=== PATIENT | male | born 2000 | race Caucasian/White ===

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

== ENCOUNTER 2022-11-30 08:35 | Observation (INO) | payer BC, SELFPAY ==
[2022-11-30 08:36] VITALS: BP 113/93; PULSE 111; RESP 16; TEMP 36.4; O2SAT 100; BMI 20.3
--- NOTE | 2022-11-30 08:45 | EX.ED.DYSGE1 ---
HPI History of Present Illness Chief Complaint: Nausea/Vomiting Detail of Chief Complaint: Vomiting and diarrhea Informant: patient Narrative Narrative: Patient presents the emergency department complaint of vomiting and diarrhea that started around 4 AM. Patient has vomited countless times and has had about 4 watery stools. He denies any blood in his stool or vomit. He describes intermittent crampy abdominal pain in the upper abdomen. Denies alcohol use. Patient does smoke marijuana. Denies sick contacts. He has had no fever. Denies urinary symptoms. He denied history of cyclic vomiting syndrome. [facility] Medical History ADD (attention deficit disorder) Comminuted fracture Depression Foreign body in left ear Fracture of radial shaft with ulna, closed Home Medications dextroamphetamine-amphetamine 20 mg tablet (Adderall) 20 mg PO DAILY 11/01/19 [History Last Taken Unknown] amoxicillin 875 mg-potassium clavulanate 125 mg tablet 1 tab PO BID #20 tabs 06/17/22 [Rx Last Taken Unknown] Allergy/AdvReac Type Severity Reaction Status Date / Time No Known Allergies Allergy Verified 11/30/22 08:37 Family History Other Alzheimer disease Depression Heart disease Surgical History History of tonsillectomy plastic surgery of the nasal and maxillary sinus Social History Smoking Status: Never smoker ROS ROS ED Review of Systems ROS Unobtainable: other Constitutional Constitutional ED: Reports lethargy; Denies chills, fever(s), sweats or weight loss Eyes Eyes: Denies blurry vision, change in vision or diplopia ENT ENT ED: Denies rhinorrhea or sore throat Cardiovascular Cardiovascular: Denies chest pain, orthopnea or racing heartbeat Respiratory/Chest Respiratory/Chest: Denies cough, dyspnea, dyspnea on exertion, orthopnea or sputum Gastrointestinal Gastrointestinal: Reports abdominal pain, diarrhea, nausea and vomiting Genitourinary Genitourinary ED: Denies dysuria, hematuria or urinary frequency Musculoskeletal Musculoskeletal: Denies arthralgias, back pain, myalgias or neck pain Integumentary Denies abscess, Abrasions or rash Neurologic Neurologic: Denies headache(s) or weakness Psychiatric Psychiatric: Denies anxiety, depression or suicidal thoughts Endocrine Endocrinology: Denies polydipsia, polyphagia or polyuria Hematologic/Lymphatic Hematologic/Lymphatic: Denies easy bleeding, easy bruising or lymphadenopathy Allergic/Immunologic Allergic/Immunologic ED: Denies mouth swelling, tongue swelling or urticaria EXAM Physical Exam Const Vital Signs: 11/30/22 08:36 11/30/22 12:03 Temperature 97.6 F L Temperature Source Temporal Pulse Rate 111 H 59 L Respiratory Rate 16 16 Blood Pressure 113/93 H 125/79 H Blood Pressure Mean 99 94 Pulse Ox 100 100 Oxygen Delivery Method Room Air Room Air Positive well nourished and well developed General Appearance ED: well developed and NAD HEENT Reports TM's clear and moist mucous membranes normocephalic and atraumatic; Negative for trauma or tenderness Tympanic Membrane ED: Yes TM's clear Eyes PERRL and EOMs intact bilaterally General Eye ED: Negative for pale conjunctiva or scleral icterus Neck no lymphadenopathy, supple and no JVD General: Negative for tenderness Chest Wall inspection of chest normal and palpation of chest normal Chest: Negative for tenderness Resp normal respiratory effort and clear to auscultation bilaterally Effort and Inspection: Negative for respiratory distress or pain with movement Auscultation: Negative for rhonchi, wheezes or diminished lung sounds Cardio regular rate, regular rhythm, S1 normal heart sound, S2 normal heart sound and no murmurs Peripheral Pulses: pulses 2+ throughout GI normal to inspection, nondistended, normoactive bowel sounds, soft to palpation, non-tender, non-distended and no masses Back/Spine no CVA tenderness and no thoracic nor lumbar tenderness Extremity normal to inspection General Extremety ED: Negative for edema General Extremity: Negative for edema Neuro oriented x3, CN's II-XII intact bilaterally, no sensory deficits noted and gait normal Sensorium / Orientation: awake, alert, oriented to person, oriented to place and oriented to time Motor Exam: strength 5/5 throughout and strength abnormal Psych mental status grossly normal Skin no rashes or lesions noted and no wounds MDM MDM MDM Narrative Medical decision making narrative: Patient with abdominal pain and vomiting and diarrhea. In the differential was viral gastroenteritis versus other acute intra-abdominal process. IV line established. Initially patient medicated with Zofran and Bentyl. He continued to vomit. He continued complaint of pain. Patient was medicated with morphine and Reglan and Benadryl. Despite Reglan continues to feel quite nauseated and at times having dry heaves. CBC with differential showed a white count of 12.9 with a hemoglobin of 15 and a hematocrit of 44. Chemistries unremarkable. LFTs and lipase were normal. Urinalysis was normal. I did obtain a CT scan of the abdomen pelvis without contrast which showed a possible ureteral stone in the distal ureter measuring 2.3 mm on the right with no associated hydro nephrosis. I had a long discussion with patient and his mother who is in the room with him. He is still not feeling well and continues to be nauseated and continues to complain of abdominal pain. This point we will discuss case with hospitalist to evaluate patient for admission for intractable nausea and vomiting. This time I suspect gastroenteritis. His abdominal pain is upper abdomen and really does not have much discomfort in the right or right lower quadrant. He does not have blood in his urine and therefore its unclear if the calcification seen on CT is a ureteral stone. Lab Data Labs: Laboratory Results - last 24 hr 11/30/22 11/30/22 11/30/22 08:57 08:57 12:00 WBC 12.9 H RBC 4.88 Hgb 15.1 Hct 43.8 MCV 89.8 MCH 30.9 MCHC 34.5 RDW Std Deviation 38.6 RDW Coeff of Marcy 11.9 Plt Count 342 MPV 9.1 Immature Gran % (Auto) 0.300 Neut % (Auto) 79.3 H Lymph % (Auto) 15.3 L [place] % (Auto) 3.8 Eos % (Auto) 0.7 Baso % (Auto) 0.6 Absolute Neuts (auto) 10.2 H Absolute Lymphs (auto) 1.98 Nucleated RBC % 0 Sodium 139 Potassium 3.5 Chloride 107 Carbon Dioxide 28.0 Anion Gap 4 L BUN 9 Creatinine 0.80 Estim Creat Clear Calc 140.57 Est GFR (MDRD) Af Amer 157 Est GFR (MDRD) Non-Af 129 BUN/Creatinine Ratio 11.2 Glucose 134 H Calcium 9.6 Total Bilirubin 0.60 AST 20 ALT 24 Alkaline Phosphatase 63 Total Protein 8.1 Albumin 4.7 Globulin 3.4 Albumin/Globulin Ratio 1.4 Lipase 279 Urine Color Yellow Urine Clarity Clear Urine pH 8.0 Ur Specific [place] 1.015 Urine Protein 30 H Urine Glucose (UA) Normal Urine Ketones 50 H Urine Occult Blood Negative Urine Nitrite Negative Urine Bilirubin Negative Urine Urobilinogen Normal Ur Leukocyte Esterase Negative Urine RBC 0 SEEN Urine WBC 0 SEEN Ur Squamous Epith Cells 0 SEEN Urine Bacteria 0 SEEN Urine Mucus 0 SEEN Radiography Diagnostic Testing: Clinical Impression(s) from Imaging Studies Abdomen/Pelvis CT 11/30/22 10:44 IMPRESSION: Possible 2.3 mm calculus within the right distal ureter with no associated hydroureteronephrosis. Electronically Signed: Daniella Lucero MD at 11:19 EDT , Discharge Plan Dx/Rx/DC Orders Clinical Impression: Intractable vomiting with nausea, Abdominal pain Disposition Disposition: Acute Care Hospital [facility]
[2022-11-30] MEDS: Ondansetron 4 MG/2 ML Vial IV (08:51)
[2022-11-30] MEDS: Dicyclomine 20 MG/2 ML Vial IM (08:51)
[2022-11-30] MEDS: 0.9% Normal Saline 1,000 ML 1000 ML IV (08:56)
[2022-11-30 09:03] LABS: Absolute Lymphocyte Count 1.98 X10^3/uL (0.83-4.51); Absolute Neutrophil Count 10.2 X10^3/uL (2.0-7.7); Basophil# 0.08 X10^3/uL; Basophil% 0.6 % (0-1); Eosinophil# 0.09 X10^3/uL; Eosinophils% 0.7 % (0-5); Hematocrit 43.8 % (40-54); Hemoglobin 15.1 g/dL (13.0-16.5); Lymphocyte # 1.98 X10^3/ul (0.83-4.51); Lymphocyte % 15.3 % (19-41); Mean Corp Hgb Conc 34.5 g/dL (32-36); Mean Corpuscular Hgb 30.9 pg (27.0-32.0); Mean Corpuscular Volume 89.8 fL (80-94); Mean Platelet Vol. 9.1 fl (6.2-12.0); Monocyte# 0.49 X10^3/uL; Monocyte% 3.8 % (0-10); NRBC Flagged by Analyzer 0 % (0-5); Neutrophil # 10.24 X10^3/uL (2.7-7.7); Neutrophil % 79.3 % (47-70); Platelet Count 342 K/mm3 (150-450); RBC Distribution Width CV 11.9 % (11.6-14.6); RBC Distribution Width SD 38.6 fl (35.1-43.9); Red Blood Count 4.88 M/mm3 (4.6-6.2); White Blood Count 12.9 K/mm3 (4.4-11.0)
[2022-11-30 09:32] LABS: BUN 9 mg/dL (7-18); EST Glomerular Filtration Rate 129 mL/min (>60); Estimated Creatinine Clearance 140.57 ml/min; Glucose 134 mg/dL (74-106)
[2022-11-30 09:33] LABS: ALB/GLOB Ratio 1.4 RATIO (0.9-2.4); AST(SGOT) 20 U/L (15-37); Alanine Aminotransfer ALT/SGPT 24 U/L (16-61); Albumin, Serum 4.7 g/dL (3.2-5.0); Alkaline Phosphatase 63 U/L (45-117); Anion Gap 4 (5-15); BUN/Creat Ratio 11.2 RATIO (10-20); Calcium,Total 9.6 mg/dL (8.5-10.1); Chloride 107 mmol/L (98-107); Est Glom Filt Rate - Afr Amer 157 mL/min (>60); Globulin 3.4 g/dL (2.2-4.2); Lipase 279 U/L (73-393); Potassium 3.5 mmol/L (3.5-5.1); Protein, Total 8.1 g/dL (6.4-8.2); Sodium Level 139 mmol/L (136-145)
[2022-11-30] MEDS: Morphine 4 MG/ML Syringe IV (10:16)
[2022-11-30] MEDS: Metoclopramide 10 MG/2 ML Vial IV (10:17)
[2022-11-30] MEDS: DiphenhydrAMINE 50 MG/ML Syringe 25 MG IV (10:19)
--- NOTE | 2022-11-30 10:44 | CT_ITS ---
INDICATION: abdominal pain EXAMINATION: CT ABDOMEN AND PELVIS WITHOUT CONTRAST - CT Abdomen And Pelvis W/O Contrast Injection TECHNIQUE: Helically acquired images were obtained of the abdomen and pelvis without oral or IV contrast. A radiation dose optimization technique was used for this scan. IV Contrast dosage and agent: None. Oral contrast: None. RADIATION DOSAGE (If Supplied By Facility): CTDIvol = ( 6.04 ) mGy, DLP = ( 303.53 ) mGycm COMPARISON: None. FINDINGS: LOWER CHEST: Lung bases are clear. No cardiomegaly or pericardial effusion. The lack of intravenous contrast limits evaluation of solid visceral organs. LIVER: Homogeneous. No focal mass. GALLBLADDER AND BILIARY TREE: No calcified gallstones. No gallbladder distension or wall edema. No intra- or extrahepatic biliary ductal dilation. PANCREAS: No focal cystic or solid mass. SPLEEN: Normal size without focal cystic or solid mass. ADRENAL GLANDS: No nodules. KIDNEYS AND URETERS: Normal renal size and position. No hydronephrosis. There is a 2.3 mm round calcification that may be within the distal right ureter. PERITONEUM: No ascites or free air. No other fluid collection. BOWEL: No evidence of acute appendicitis. No stomach or bowel distension. No focal inflammatory change. LYMPH NODES: No enlarged mesenteric or retroperitoneal lymph nodes. VESSELS: Aorta is non-dilated. URINARY BLADDER: Unremarkable. REPRODUCTIVE ORGANS: No pelvic masses. ABDOMINAL WALL: No discrete abdominal or pelvic wall hernia. BONES: No lytic or blastic abnormality. CT/Abdomen/Pelvis without Cont IMPRESSION: Possible 2.3 mm calculus within the right distal ureter with no associated hydroureteronephrosis. Electronically Signed: Daniella Lucero MD at 11:19 EDT ,
[2022-11-30] MEDS: Ketorolac 30 MG/ML Syringe IV (12:02)
[2022-11-30 12:03] VITALS: BP 125/79; PULSE 59; RESP 16; O2SAT 100
[2022-11-30 12:08] LABS: Bacteria 0 SEEN /hpf (None Seen); Mucous, Urine 0 SEEN /hpf (<or=2+); Red Blood Cells-Urine 0 SEEN /hpf (0-5); Squamous Epithelial Cells - UA 0 SEEN /hpf (0-5); White Blood Cells 0 SEEN /hpf (0-5)
[2022-11-30 12:17] LABS: Color, Urine Yellow (Yellow); Glucose, Dipstick Normal (Normal); Ketone-Dipstick 50 mg/dl (Negative); Leukocyte Esterase-Dipstick Negative /ul (Negative); Nitrite-Dipstick Negative (Negative); Occult Blood-Urine Negative /ul (Negative); Protein-Dipstick 30 mg/dl (Negative); Specific Gravity, Urine 1.015 (1.002-1.030); Urine Bilirubin Dipstick Negative (Negative); Urine Clarity Clear (Clear); Urine Urobilinogen Normal (Normal)
--- NOTE | 2022-11-30 13:01 | NURSING ---
DR JACOB SUERO
--- NOTE | 2022-11-30 13:13 | NURSING ---
MED SURG JACOB OBS INTRACTABLE NAUSEA, VOMITING, ABD PAIN
--- NOTE | 2022-11-30 13:21 | HP.PCM.HOS_ITS ---
HPI - General General Date of Admission: 11/30/22 Date of Service: 11/30/22 Chief Complaint: Persistent nausea and vomiting and diarrhea that started today multiple times. HPI Narrative TRINA CARVAJAL, is a 22 M came to ED accompanied with his mother for persistent diarrhea more than 10 times watery in consistency, liquid with no blood or mucus started about 4 AM today. Patient has abdominal cramps mainly in upper abdomen mainly epigastric region. Patient also had 4-5 times nausea and vomiting and not able to have oral intake because of vomiting. Patient is crawling up because of abdominal cramp and dehydrated. No hematemesis melena or hematochezia. Patient mother denied diagnosis of cyclic vomiting in the past. Patient had antibiotic for acute sinusitis, Augmentin in May 2022 but no need recent antibiotic intake. No fever or chills. No unusual food outside or water or hiking or other activity. Labs reviewed in ED. Social history: Her mother side he vapes but no cigarette smoking. No heavy or chronic alcohol use. No substance use. Family history: No history of colon cancer or malignant polyp or hereditary polyp syndrome [facility] Medical History ADD (attention deficit disorder) Comminuted fracture Depression Foreign body in left ear Fracture of radial shaft with ulna, closed Home Medications dextroamphetamine-amphetamine 20 mg tablet (Adderall) 20 mg PO DAILY 11/01/19 [History Last Taken Unknown] amoxicillin 875 mg-potassium clavulanate 125 mg tablet 1 tab PO BID #20 tabs 06/17/22 [Rx Last Taken Unknown] Allergy/AdvReac Type Severity Reaction Status Date / Time No Known Allergies Allergy Verified 11/30/22 08:37 Family History Other Alzheimer disease Depression Heart disease Surgical History History of tonsillectomy plastic surgery of the nasal and maxillary sinus Social History Smoking Status: Never smoker ROS ROS Narrative Constitutional: Weak and dehydrated. HEENT: Reports systems reviewed and no addt'l complaints, except as documented Respiratory/Chest: Denies chest pain, shortness of breath at rest or with exertion Gastrointestinal: As documented in HPI. Genitourinary: Slight yellow urine. Denies burning urination or new urinary tract symptoms Musculoskeletal: Denies acute joint pain and limited range of motion Neurologic: Denies seizure-like activity. No stroke. Psychiatry: History of ADHD on medication. No acute impulsive or behavioral abnormality. skin: No ulcer. No rash Endocrinology: Reports systems reviewed and no addt'l complaints, except as documented Hematologic/Lymphatic: Reports systems reviewed and no addt'l complaints, except as documented Rest 14 ROS are negative except as mentioned in HPI Vital Signs Vital Signs Vital Signs: 11/30/22 08:36 11/30/22 12:03 Temperature 97.6 F L Temperature Source Temporal Pulse Rate 111 H 59 L Respiratory Rate 16 16 Blood Pressure 113/93 H 125/79 H Blood Pressure Mean 99 94 Pulse Ox 100 100 Oxygen Delivery Method Room Air Room Air Weight Weight: 150 lb Body Mass Index (BMI) 20.3 Physical Exam Narrative Physical exam: General: Alert, Oriented x3, Cooperative HEENT: Atraumatic, PERRLA, EOMI, Normocephalic Oral: Oral mucosa dry. No Gingival or Mucosal Lesions/ Ulcerations Neck: Supple, No JVD, Negative Carotid Bruits Lungs: Air entry diminished in bilateral lung bases. No crepitation/rhonchi Cardiovascular: Regular rate, Regular Rhythm, Normal S1, Normal S2, No murmurs Abdomen: Soft, mild tenderness in epigastric region. Bowel Sounds Present, Soft, Non-Distended : No renal angle tenderness. No suprapubic tenderness. Extremities: No edema, Capillary Refill Less than 3 Seconds Skin: No rashes, No breakdown Musculoskeletal: No Tenderness to Palpation of Joints or Extremities. Range of motion intact Neurological: Cranial nerves II-XII grossly intact, DTR 2+/4 and Symmetrical, Neuro grossly intact Psych/Mental Status: Flat affect. ADHD. Results Lab / Micro Data Result Diagrams: 11/30/22 08:57 11/30/22 08:57 Labs: Laboratory Results - last 24 hr 11/30/22 08:57: WBC 12.9 H, RBC 4.88, Hgb 15.1, Hct 43.8, MCV 89.8, MCH 30.9, MCHC 34.5, RDW Std Deviation 38.6, RDW Coeff of Marcy 11.9, Plt Count 342, MPV 9.1, Immature Gran % (Auto) 0.300, Neut % (Auto) 79.3 H, Lymph % (Auto) 15.3 L, [place] % (Auto) 3.8, Eos % (Auto) 0.7, Baso % (Auto) 0.6, Absolute Neuts (auto) 10.2 H, Absolute Lymphs (auto) 1.98, Nucleated RBC % 0 11/30/22 08:57: Sodium 139, Potassium 3.5, Chloride 107, Carbon Dioxide 28.0, Anion Gap 4 L, BUN 9, Creatinine 0.80, Estim Creat Clear Calc 140.57, Est GFR (MDRD) Af Amer 157, Est GFR (MDRD) Non-Af 129, BUN/Creatinine Ratio 11.2, Glucos e 134 H, Calcium 9.6, Total Bilirubin 0.60, AST 20, ALT 24, Alkaline Phosphatase 63, Total Protein 8.1, Albumin 4.7, Globulin 3.4, Albumin/Globulin Ratio 1.4, Lipase 279 11/30/22 12:00: Urine Color Yellow, Urine Clarity Clear, Urine pH 8.0, Ur Specific [place] 1.015, Urine Protein 30 H, Urine Glucose (UA) Normal, Urine Ketones 50 H, Urine Occult Blood Negative, Urine Nitrite Negative, Urine Bilirubin Negative, Urine Urobilinogen Normal, Ur Leukocyte Esterase Negative, Urine RBC 0 SEEN, Urine WBC 0 SEEN, Ur Squamous Epith Cells 0 SEEN, Urine Bacteria 0 SEEN, Urine Mucus 0 SEEN Radiology Impression Abdomen/Pelvis CT 11/30/22 10:44 IMPRESSION: Possible 2.3 mm calculus within the right distal ureter with no associated hydroureteronephrosis. Electronically Signed: Daniella Lucero MD at 11:19 EDT , Assessment & Plan Assessment/Plan (1) Acute gastroenteritis: PLAN: Plan 22-year-old gentleman is being admitted for evaluation of acute onset of persistent intractable nausea vomiting and clear diarrhea severe in nature. 1. Persistent nausea vomiting and severe diarrhea, seems most probably viral gastroenteritis: Patient is being admitted to regular MedSur floor. Patient had 2 L of IV fluid normal saline in ED. 1 L RL bolus ordered and then 150 mill per hour. Monitor intake and output. Stool for enteric bacteriology panel, and C. difficile ordered. Symptomatic management with antiemetic agent. 2. Upper abdominal cramps probably due to viral gastroenteritis:: Patient had CT abdomen pelvis in ED and individually reviewed shows no small or large bowel distention. No stomach distention. No focal inflammatory change although CT scan imagings are limited due to absence of oral and IV contrast. It is reported as 2.3 mm calcification within the distal right ureter but no hydronep hrosis. 3. ADHD: Continue outpatient follow-up. 4. Vaping: Advised to quit vaping DVT prophylaxis low risk. Early ambulation encouraged Clinical Impression(s) from Imaging Studies Abdomen/Pelvis CT 11/30/22 10:44 IMPRESSION: Possible 2.3 mm calculus within the right distal ureter with no associated hydroureteronephrosis. Electronically Signed: Daniella Lucero MD at 11:19 EDT , Charges/Coding Visit Charges Inpatient E&M: 81006 Init Hosp L3
[2022-11-30] MEDS: Lactated Ringers 1,000 ML 999 ML IV (13:37)
[2022-11-30 13:39] LABS: Magnesium 2.1 mg/dL (1.6-2.6)
[2022-11-30 13:49] VITALS: BP 104/69; PULSE 55; RESP 16; TEMP 36.6; O2SAT 97
[2022-11-30 13:58] VITALS: BMI 18.8
[2022-11-30 14:14] VITALS: BP 134/88; PULSE 58; RESP 18; TEMP 36.9; O2SAT 100
[2022-11-30 14:22] VITALS: PULSE 58
[2022-11-30] MEDS: Lactated Ringers 1,000 ML 150 ML IV ×2 (15:23→22:11)
[2022-11-30] MEDS: Morphine 2 MG/ML Syringe IV (15:23)
[2022-11-30] MEDS: proCHLORPERazine 10 MG/2 ML Vial 5 MG IV (15:45)
[2022-11-30] MEDS: 0.9% Saline Lock 10 ML Syringe IV (15:45)
[2022-11-30 20:35] VITALS: BP 127/62; PULSE 100; RESP 18; TEMP 36.9; O2SAT 99
[2022-12-01 04:53] VITALS: BP 97/58; PULSE 87; RESP 18; TEMP 36.8; O2SAT 99
[2022-12-01 04:56] LABS: Absolute Lymphocyte Count 2.67 X10^3/uL (0.83-4.51); Absolute Neutrophil Count 6.9 X10^3/uL (2.0-7.7); Basophil# 0.06 X10^3/uL; Basophil% 0.6 % (0-1); Eosinophil# 0.13 X10^3/uL; Eosinophils% 1.2 % (0-5); Hematocrit 36.6 % (40-54); Hemoglobin 12.9 g/dL (13.0-16.5); Lymphocyte # 2.67 X10^3/ul (0.83-4.51); Lymphocyte % 24.8 % (19-41); Mean Corp Hgb Conc 35.2 g/dL (32-36); Mean Corpuscular Hgb 31.7 pg (27.0-32.0); Mean Corpuscular Volume 89.9 fL (80-94); Mean Platelet Vol. 9.5 fl (6.2-12.0); Monocyte# 0.98 X10^3/uL; Monocyte% 9.1 % (0-10); NRBC Flagged by Analyzer 0 % (0-5); Neutrophil # 6.91 X10^3/uL (2.7-7.7); Platelet Count 317 K/mm3 (150-450); RBC Distribution Width CV 11.9 % (11.6-14.6); RBC Distribution Width SD 38.7 fl (35.1-43.9); Red Blood Count 4.07 M/mm3 (4.6-6.2); White Blood Count 10.8 K/mm3 (4.4-11.0)
[2022-12-01 05:17] LABS: Anion Gap 5 (5-15); BUN 7 mg/dL (7-18); BUN/Creat Ratio 11.2 RATIO (10-20); Calcium,Total 8.3 mg/dL (8.5-10.1); Chloride 111 mmol/L (98-107); Creatinine, Serum 0.63 mg/dL (0.70-1.30); EST Glomerular Filtration Rate 172 mL/min (>60); Est Glom Filt Rate - Afr Amer 208 mL/min (>60); Estimated Creatinine Clearance 160.29 ml/min; Glucose 92 mg/dL (74-106); Potassium 3.3 mmol/L (3.5-5.1); Sodium Level 141 mmol/L (136-145)
[2022-12-01 09:31] VITALS: BP 125/76; PULSE 99; RESP 16; TEMP 37; O2SAT 99
--- NOTE | 2022-12-01 10:02 | PCM.DC ---
Discharge Instructions Diet Discharge Diet: No restrictions Activity Discharge Activity: Return to Normal Activity Weight Bearing Status: Weight bearing as tolerated Dressing / Incision Call your doctor if you observe: Fever of 101 or Higher, Coldness, Increased Pain, Numbness or Tingling, Change in Color, Inability to urinate, Inability to have a bowel movement, Shortness of breath, Dizziness, Fainting spells, Swelling in the ankles, Chest pain, Prolonged hiccupping, Increased palpitations (irregular heartbeat) and Calf discomfort Follow Up Care When: IN 2 WEEKS Test Results: Test results from this visit will be discussed in further detail at your follow-up appointment, if applicable. Discharge Plan Admission Admit Date/Time: 11/30/22 13:02 Primary Reason for Your Visit: Viral gastroenteritis Attending Provider: Yusuf Robertson Primary Care Provider: Melody Alves NP Discharge Orders/Prescriptions Prescriptions: New potassium chloride 20 mEq packet 40 meq PO DAILY 2 Days Qty: 4 0RF Rx Instructions: start from 12/02/22 Continued dextroamphetamine-amphetamine [Adderall] 20 mg tablet 20 mg PO DAILY Referrals / Follow Up: Melody Alves NP, OPERATING SYSTEM PROGRAMMER-C [Primary Care Provider] - Disposition Disposition (needs filled in before D/C Order can be placed): Home, Self Care
--- NOTE | 2022-12-01 11:34 | DS.PCM_ITS ---
Providers Date of Admission: 11/30/22 Date of Discharge: 12/01/22 Primary Care Physician: Melody Alves, DOMO Reason For Visit: PERSISTANT VOMITING AND DIARRHEA Diagnosis Discharge Diagnosis (1) Acute gastroenteritis: Status: Acute Code(s): K52.9 - Noninfective gastroenteritis and colitis, unspecified Plan 22-year-old gentleman is being admitted for evaluation of acute onset of persistent intractable nausea vomiting and clear diarrhea severe in nature. 1. Persistent nausea vomiting and severe diarrhea, seems most probably viral gastroenteritis: Patient is being admitted to regular MedSurg floor. Patient had 2 L of IV fluid normal saline in ED. 1 L RL bolus ordered and then 150 mill per hour. Monitor intake and output. Stool for enteric bacteriology panel, and C. difficile ordered. Symptomatic management with antiemetic agent. 12/01: Patient did not had vomiting or diarrhea after admission therefore no stool sample was collected. And diarrhea therefore no stool sample was collecte d. Abdominal pain has resolved. Patient is well-hydrated and wants to go home. Discussed with the patient and mother. Mild hypokalemia. K. Dur 1 dose now and then prescription for potassium repla cement given. 2. Upper abdominal cramps probably due to viral gastroenteritis:: Patient had CT abdomen pelvis in ED and individually reviewed shows no small or large bowel distention. No stomach distention. No focal inflammatory change although CT scan imagings are limited due to absence of oral and IV contrast. It is reported as 2.3 mm calcification within the distal right ureter but no hydr onephrosis. 3. ADHD: Continue outpatient follow-up. 4. Vaping: Advised to quit vaping DVT prophylaxis low risk. Early ambulation encouraged Discharge medication reconciliation done. Discharge follow-up instructions completed. Discharge process discussed with the patient and all questions were answered to patient's satisfaction. Total time spent, exact 35 minutes on discharge meds reconciliation, examination, coordination of care with nurses and ancillary staff, review of imaging and blood test and discussion with the patient on follow-up instructions. Clinical Impression(s) from Imaging Studies Abdomen/Pelvis CT 11/30/22 10:44 IMPRESSION: Possible 2.3 mm calculus within the right distal ureter with no associated hydroureteronephrosis. Electronically Signed: Daniella Lucero MD at 11:19 EDT , Medications at Discharge Home Medications dextroamphetamine-amphetamine 20 mg tablet (Adderall) 20 mg PO DAILY 11/01/19 potassium chloride 20 mEq oral packet 40 meq PO DAILY 2 days #4 ea 12/01/22 Physical Exam Narrative Seen and examined on the day of discharge Physical exam: General: Alert, Oriented x3, Cooperative HEENT: Atraumatic, PERRLA, EOMI, Normocephalic Oral: Oral mucosa dry. No Gingival or Mucosal Lesions/ Ulcerations Neck: Supple, No JVD, Negative Carotid Bruits Lungs: Air entry equal in bilateral lung bases. No crepitation/rhonchi Cardiovascular: Regular rate, Regular Rhythm, Normal S1, Normal S2, No murmurs Abdomen: Soft, no tenderness. Bowel Sounds Present, Soft, Non-Distended : No renal angle tenderness. No suprapubic tenderness. Extremities: No edema, Capillary Refill Less than 3 Seconds Skin: No rashes, No breakdown Musculoskeletal: No Tenderness to Palpation of Joints or Extremities. Range of motion intact Neurological: Cranial nerves II-XII grossly intact, DTR 2+/4 and Symmetrical, Neuro grossly intact Psych/Mental Status: Flat affect. ADHD. Weight / BMI Weight Weight: 134 lb 11.239 oz Body Mass Index (BMI) 18.8 ABG / Lab / Microbiology Data Result Diagrams: 12/01/22 04:17 12/01/22 04:17 Laboratory: Laboratory Results - last 24 hr 11/30/22 08:57: Magnesium 2.1 11/30/22 12:00: Urine Color Yellow, Urine Clarity Clear, Urine pH 8.0, Ur Specific [place] 1.015, Urine Protein 30 H, Urine Glucose (UA) Normal, Urine Ketones 50 H, Urine Occult Blood Negative, Urine Nitrite Negative, Urine Bilirubin Negative, Urine Urobilinogen Normal, Ur Leukocyte Esterase Negative, Urine RBC 0 SEEN, Urine WBC 0 SEEN, Ur Squamous Epith Cells 0 SEEN, Urine Bacteria 0 SEEN, Urine Mucus 0 SEEN 12/01/22 04:17: WBC 10.8, RBC 4.07 L, Hgb 12.9 L, Hct 36.6 L, MCV 89.9, MCH 31.7, MCHC 35.2, RDW Std Deviation 38.7, RDW Coeff of [place]cy 11.9, Plt Count 317, MPV 9.5, Immature Gran % (Auto) 0.300, Neut % (Auto) 64.0, Lymph % (Auto) 24.8, [place] % (Auto) 9.1, Eos % (Auto) 1.2, Baso % (Auto) 0.6, Absolute Neuts (auto) 6.9, Absolute Lymphs (auto) 2.67, Nucleated RBC % 0 12/01/22 04:17: Sodium 141, Potassium 3.3 L, Chloride 111 H, Carbon Dioxide 25.0, Anion Gap 5, BUN 7, Creatinine 0.63 L, Estim Creat Clear Calc 160.29, Est GFR (MDRD) Af Amer 208, Est GFR (MDRD) Non-Af 172, BUN/Creatinine Ratio 11.2, Glucose 92, Calcium 8.3 L D/C Instructions Discharge Diet: No restrictions Weight Bearing Status: Weight bearing as tolerated Call your doctor if you observe: Fever of 101 or Higher, Coldness, Increased Pain, Numbness or Tingling, Change in Color, Inability to urinate, Inability to have a bowel movement, Shortness of breath, Dizziness, Fainting spells, Swelling in the ankles, Chest pain, Prolonged hiccupping, Increased palpitations (irregular heartbeat) and Calf discomfort When: IN 2 WEEKS Meaningful Use Info Meaningful Use Diagnoses (Choose all that apply): None applicable Discharge Plan Admission Admit Date/Time: 11/30/22 13:02 Primary Reason for Your Visit: Viral gastroenteritis Attending Provider: Yusuf Robertson Primary Care Provider: Melody Alves [employer]ST[employer] PRINT OPERATOR Instructions Additional Instructions / Restrictions: advance diet slowly as tolerated BRAT diet bananas, rice, applesauce and toast, mashed potatoes, gatorade/powerade Discharge Orders/Prescriptions Prescriptions: New potassium chloride 20 mEq packet 40 meq PO DAILY 2 Days Qty: 4 0RF Rx Instructions: start from 12/02/22 Continued dextroamphetamine-amphetamine [Adderall] 20 mg tablet 20 mg PO DAILY Referrals / Follow Up: Melody Alves NP, INSTANT PRINT OPERATOR-C [Primary Care Provider] - Disposition Disposition (needs filled in before D/C Order can be placed): Home, Self Care Charges/Coding Visit Charges Inpatient E&M: 91521 Disch Hosp >30min
[2022-12-01] MEDS: Potassium Chloride Oral Tablet 20 MEQ 40 MEQ PO (11:43)
== END 2022-12-01 12:16 | disposition home or self-care (01) ==
LOC: ED 12:48 → MS3 13:28
PROVIDERS: Admitting Provider Internal Medicine; Emergency Provider Emergency Medicine; PCP Nurse Practitioner; Visit Provider Internal Medicine
DX: R11.2 Nausea with vomiting, unspecified (principal); E86.0 Dehydration; E87.6 Hypokalemia; F90.9 Attention-deficit hyperactivity disorder, unspecified type; Z79.899 Other long term (current) drug therapy; F17.290 Nicotine dependence, other tobacco product, uncomplicated; R10.10 Upper abdominal pain, unspecified
CPT/HCPCS: 99285; 36415; 74176; 80048; 80053; 81001; 83690; 83735; 85025; 96361; 96365; 96372; 96375; 96376; 99221; J7030; J7120; A4216; G0378; J2405